=== PATIENT | female | born 1990 | race American Indian/Alaskan Native ===

== ENCOUNTER 2020-11-28 13:31 | Emergency (ER) | payer MEDICAID, OTHER ==
[2020-11-28 13:36] VITALS: BP 130/87
--- NOTE | 2020-11-28 13:38 | Emergency Department Report ---
- General Chief Complaint: Upper Respiratory Infection Stated Complaint: WEAKNESS HOT COLD, COUGH, HEADACHE Time Seen by Provider: 11/28/20 13:34 Source: patient Mode of arrival: Ambulatory Limitations: No Limitations - History of Present Illness Initial Comments: 30-year-old female presents to the ER today with complaints of flulike/Covid- like illness. Patient states her symptoms started 3 days ago. Patient states that she has been generally weak, having chills, headache, productive cough, and sneezing. 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 She has not gotten an outpatient Covid test since her symptoms started. She also has not received any of the COVID-19 vaccines. She reports no GI or symptoms. She reports no shortness of breath or wheezing. She does have a history of tobacco use but denies any illicit drug use or alcohol abuse. She denies any recent travel. She denies any significant past history. MD Complaint: cough, other (sneezing, chills, generalized weakness ) -: days(s) (3) - Related Data Previous Rx's Medication Instructions Recorded Last Taken Type Ibuprofen [Motrin] 400 mg PO Q8H PRN #30 tablet 11/28/20 Unknown Rx Allergies Allergy/AdvReac Type Severity Reaction Status Date / Time No Known Allergies Allergy Unverified 11/28/20 13:34 ED Review of Systems ROS: Stated complaint: WEAKNESS HOT COLD, COUGH, HEADACHE Other details as noted in HPI Comment: All other systems reviewed and negative Constitutional: chills. denies: fever Eyes: denies: eye pain, eye discharge, vision change ENT: other (Sneezing). denies: ear pain, throat pain, dental pain, hearing loss, epistaxis, congestion Respiratory: denies: cough, orthopnea, shortness of breath, SOB with exertion, SOB at rest, stridor, wheezing Cardiovascular: denies: chest pain, palpitations Gastrointestinal: denies: abdominal pain, nausea, vomiting, diarrhea, hematemesis, melena, hematochezia Genitourinary: denies: urgency, dysuria, frequency, hematuria, discharge, abnormal menses, dyspareunia Musculoskeletal: denies: back pain, joint swelling, arthralgia, myalgia Skin: denies: rash, lesions, change in color, change in hair/nails, pruritus Neurological: headache. denies: weakness, numbness, paresthesias, confusion, abnormal gait, vertigo Psychiatric: denies: anxiety, depression, auditory hallucinations, visual hallucinations, homicidal thoughts, suicidal thoughts Hematological/Lymphatic: denies: easy bleeding, easy bruising ED Past Medical Hx - Past Medical History Previous Medical History?: No - Surgical History Past Surgical History?: No - Medications Home Medications: Home Medications Medication Instructions Recorded Confirmed Last Taken Type Ibuprofen [Motrin] 400 mg PO Q8H PRN #30 tablet 11/28/20 Unknown Rx ED Physical Exam - General Limitations: No Limitations General appearance: alert, in no apparent distress - Head Head exam: Present: atraumatic, normocephalic, normal inspection - Eye Eye exam: Present: normal appearance, PERRL, EOMI Pupils: Present: normal accommodation - ENT ENT exam: Present: normal exam, mucous membranes moist, TM's normal bilaterally - Neck Neck exam: Present: normal inspection, full ROM. Absent: meningismus - Respiratory Respiratory exam: Present: normal lung sounds bilaterally. Absent: respiratory distress, wheezes, rales, rhonchi, stridor - Cardiovascular Cardiovascular Exam: Present: regular rate, normal rhythm, normal heart sounds - GI/Abdominal GI/Abdominal exam: Present: soft. Absent: distended, tenderness, guarding, rebound - Neurological Exam Neurological exam: Present: alert, oriented X3, CN II-XII intact, normal gait - Psychiatric Psychiatric exam: Present: normal affect, normal mood - Skin Skin exam: Present: intact ED Course Vital Signs 11/28/20 13:35 Temperature 98.6 F Pulse Rate 73 Respiratory 19 Rate Blood Pressure 130/87 O2 Sat by Pulse 99 Oximetry ED Medical Decision Making - Medical Decision Making The patient is resting comfortably, is alert and in no distress. The patient has normal mental status and is neurologically intact. The patient appears well and there is no significant dehydration. There is no respiratory distress and no signs of systemic toxicity. Her exam, diagnostic testing and current condit ion do not demonstrate an infectious process such as meningitis, severe pneumonia, retropharyngeal abscess, epiglottitis, sepsis or other serious /viral/bacterial infection requiring further testing, treatment, consultation or admission at this time. Patient likely has a nonspecific viral infection, but COVID-19 is to be considered and I discussed suspected diagnosis with patient and recommend that she get an outpatient COVID-19 test. In the meantime recommend that she quarantine, and recommend that she use [id number] medications to help treat her symptoms. The vital signs have been stable. She expressed understanding of all instructions and agree with plan. The patient's condition is stable and appropriate for discharge. The patient will pursue further outpatient evaluation with the primary care physician. Critical care attestation.: If time is entered above; I have spent that time in minutes in the direct care of this critically ill patient, excluding procedure time. ED Disposition Clinical Impression: Viral illness Disposition: 01 HOME / SELF CARE / HOMELESS Is pt being admited?: No Does the pt Need Aspirin: No Condition: Stable Instructions: Viral Illness, Adult Additional Instructions: If symptoms appear most consistent with a nonspecific viral syndrome. However given the current pandemic, COVID-19 is in the differential of possibilities. I do recommend getting an outpatient COVID-19 test at a local urgent care, clinic or pharmacy. In the meantime I recommend that you isolate/quarantine yourself and stay away from anyone who is elderly, immunocompromised or chronically ill. You can use ibuprofen every 6-8 hours and Tylenol every 4-6 hours as needed for any body aches, or pain or fever. You can also take flof-mgi-trrmfpu Mucinex, Robitussin or Delsym to help with any cough. I also recommend Claritin and or Zyrtec or Dorina to help with your sneezing. Drink lots of fluids. Take a multivitamin containing vitamin C, zinc and vitamin D to help boost your immune system. Follow-up closely with your PCP. Return to the ER if your symptoms changes or worsens in any way. Prescriptions: Ibuprofen [Motrin] 400 mg PO Q8H PRN #30 tablet PRN Reason: pain Referrals: [facility] [Provider Group] - 3-5 Days Forms: Work/School Release Form(ED) Time of Disposition: 13:54 Print Language: TAJIK
== END 2020-11-28 14:00 | disposition home or self-care (01) ==
LOC: ED 13:31
DX: B34.9 Viral infection, unspecified (principal)
CPT/HCPCS: 99282

== ENCOUNTER 2021-04-02 05:49 | Emergency (ER) | payer SELFPAY ==
[2021-04-02 06:55] VITALS: BP 122/83
[2021-04-02] MEDS ORDERED: SODIUM CHLORIDE 0.9% 1000 ML 1,000 ML IV ONE (07:01)
[2021-04-02] MEDS ORDERED: ONDANSETRON 4 MG/2 ML INJ IV ONE (07:01)
[2021-04-02 07:34] LABS: Hematocrit 44.4 % (30.3-42.9); Hemoglobin 14.7 gm/dl (10.1-14.3); Mean Corpuscular HGB Conc 33 % (30-34); Mean Corpuscular Volume 88 fl (79-97); Platelet Count 304 K/mm3 (140-440); Red Blood Count 5.03 M/mm3 (3.65-5.03); Red Cell Distribution Width 12.5 % (13.2-15.2)
--- NOTE | 2021-04-02 07:37 | Emergency Department Report ---
ED N/V/D HPI - General Chief complaint: Nausea/Vomiting/Diarrhea Stated complaint: HYPEREMESIS Time Seen by Provider: 04/02/21 07:31 Source: patient Mode of arrival: Ambulatory Limitations: No Limitations - History of Present Illness Initial comments: 30-year-old -Thai female presents to the emergency room complaining of nausea and vomiting for the last week and a half. Patient states she found out she was last week and since then has been nauseated and vomiting. She reports she has not been seen by [facility] OF NURSING as they will not see her until she is 8 weeks . She plans on being at [facility] with Dr. Joyce in [place]. Patient's last menstrual period was 02/17/2021. She is 3 para 2 with no complications in her last except hyperemesis in 1. She denies any vaginal bleeding denies any vaginal discharge mild pelvic pain on both sides. She is not vaccinated for Covid. She does not have a primary care provider. She has no past medical history, currently takes no meds on a daily basis and has no known drug allergies. MD complaint: nausea, vomiting, abdominal pain Onset/Timin -: week(s) Description of Vomiting: food contents, watery, bilious Associated Abdominal Pain: Yes (Bilateral pelvic pain) Severity: severe Pain Scale: 1 Quality: cramping Consistency: intermittent Improves with: none Worsens with: none Associated Symptoms: malaise, nausea/vomiting. denies: chest pain, cough, diaphoresis, fever/chills, loss of appetite - Related Data Previous Rx's Medication Instructions Recorded Last Taken Type Ibuprofen [Motrin] 400 mg PO Q8H PRN #30 tablet 11/28/20 Unknown Rx Ondansetron [Zofran Odt] 4 mg PO Q8HR PRN #12 tab.rapdis 04/02/21 Unknown Rx Allergies Allergy/AdvReac Type Severity Reaction Status Date / Time No Known Allergies Allergy Unverified 11/28/20 13:34 ED Review of Systems ROS: Stated complaint: HYPEREMESIS Other details as noted in HPI ED Past Medical Hx - Past Medical History Previous Medical History?: No - Medications Home Medications: Home Medications Medication Instructions Recorded Confirmed Last Taken Type Ibuprofen [Motrin] 400 mg PO Q8H PRN #30 tablet 11/28/20 Unknown Rx Ondansetron [Zofran Odt] 4 mg PO Q8HR PRN #12 tab.rapdis 04/02/21 Unknown Rx ED Physical Exam - General Limitations: No Limitations General appearance: alert, in no apparent distress - Head Head exam: Present: atraumatic, normocephalic - Eye Eye exam: Present: normal appearance - ENT ENT exam: Present: mucous membranes moist - Neck Neck exam: Present: normal inspection - Respiratory Respiratory exam: Present: normal lung sounds bilaterally. Absent: respiratory distress - Cardiovascular Cardiovascular Exam: Present: regular rate, normal rhythm. Absent: systolic murmur, diastolic murmur, rubs, gallop - GI/Abdominal GI/Abdominal exam: Present: soft, normal bowel sounds - Extremities Exam Extremities exam: Present: normal inspection - Back Exam Back exam: Present: normal inspection - Neurological Exam Neurological exam: Present: alert, oriented X3 - Psychiatric Psychiatric exam: Present: normal affect, normal mood - Skin Skin exam: Present: warm, dry, intact, normal color. Absent: rash ED Course Vital Signs 04/02/21 06:54 Temperature 98.9 F Pulse Rate 106 H Respiratory 20 Rate Blood Pressure 122/83 [Right] O2 Sat by Pulse 98 Oximetry - Reevaluation(s) Reevaluation #1: 04/02/21 10:13 Patient reports she feels much better after having fluids and is Zofran. She states she is feeling like she is getting hungry. I asked patient to please give us some urine. She says she will try. ED Medical Decision Making - Lab Data Result diagrams: 04/02/21 07:18 04/02/21 07:18 - Radiology Data Radiology results: report reviewed Study Comments [facility] [address] [place] [address] Ultrasound Report Signed Patient: PEYTON FENG MR#: [id number] 0 : 1990 Acct:[id number] Age/Sex: 30 / F ADM Date: 04/02/21 Loc: ED Attending Dr: Ordering Physician: THAO NUÑEZ Date of Service: 04/02/21 Procedure(s): US OB <= 14 weeks fetus Accession Number(s): [id number] cc: THAO NUÑEZ FIRSTTRIMESTER OBSTETRIC ULTRASOUND HISTORY: Pelvic pain, nausea and vomiting during . COMPARISON: None. TECHNIQUE: Routine transabdominal OB ultrasound performed. FINDINGS: Uterus: Mildly enlarged measuring 9.7 x 6.3 x 7.9 cm. Gestational Sac: Well-defined oval shape and intrauterine in location. Yolk Sac: Normal in appearance. Fetus/Embryo: Lavinia-rump length of 0.79 cm, corresponding to an estimated gestational age of 6 weeks 5 days. Embryonic/ anatomy is too small for evaluation. Embryonic/ cardiac activity: 124bpm Placenta: Too small for evaluation. Amniotic fluid volume: Subjectively appropriate for gestational age. Ovaries: The right ovary is normal in size and appearance with normal blood flow, measuring 2.5 x 1.9 x 1.7 cm. The left ovary is normal in size and appearance with normal blood flow, measuring 3.6 x 3.0 x 2.2 cm. Hypoechoic space-occupying mass in the left ovary with peripheral vascularity is most likely the corpus luteum. Additional findings: A small subchorionic hemorrhage is identified measuring 1.3 x 1.0 cm IMPRESSION Viable single intrauterine dated at 6 weeks 5 days. Small subchorionic hemorrhage. Probable corpus luteum cyst in the left ovary. Signer Name: Adolph Aguilar Jr, MD Signed: 04/02/2021 8:30 AM Workstation Name: [id number] Transcribed By: TTR Dictated By: ADOLPH AGUILAR JR, MD Electronically Authenticated By: ADOLPH AGUILAR JR, MD Signed Date/Time: 04/02/21829 DD/ 6 TD/TT: - Medical Decision Making 30-year-old -Thai female presents to the emergency room complaining of nausea and vomiting for the last week and a half. Patient states she found out she was last week and since then has been nauseated and vomiting. She reports she has not been seen by [facility] OF NURSING as they will not see her until she is 8 weeks . She plans on being at [facility] with Dr. Joyce in [place]. Patient's last menstrual period was 02/17/2021. She is 3 para 2 with no complications in her last except hyperemesis in 1. She denies any vaginal bleeding denies any vaginal discharge mild pelvic pain on both sides. She is not vaccinated for Covid. She does not have a primary care provider. She has no past medical history, currently takes no meds on a daily basis and has no known drug allergies. CBC, CMP, hCG, urinalysis, INT normal saline, IV Zofran. Critical care attestation.: If time is entered above; I have spent that time in minutes in the direct care of this critically ill patient, excluding procedure time. ED Disposition Clinical Impression: Hyperemesis gravidarum Disposition: HOME / SELF CARE / HOMELESS Is pt being admited?: No Does the pt Need Aspirin: No Condition: Stable Instructions: Hyperemesis Gravidarum Additional Instructions: Urinalysis is negative. Your ultrasound shows you are having intrauterine uterine gestation of 6 weeks and 5 days. I recommend to take the Zofran for nausea and vomiting. Keep your appointment with your PROFESSOR OF NURSING. Increase your fluids advance your diet as tolerated. Start on your vitamins. You can only take Tylenol for your pain. Prescriptions: Ondansetron [Zofran Odt] 4 mg PO Q8HR PRN #12 tab.rapdis PRN Reason: Nausea And Vomiting Referrals: PRIMARY CARE, [Primary Care Provider] - 3-5 Days [facility] [Provider Group] - 3-5 Days Forms: Accompanied Note, Work/School Release Form(ED) Time of Disposition: 11:43
[2021-04-02 07:58] LABS: Alanine Aminotransferase 16 units/L (7-56); Blood Urea Nitrogen 14 mg/dL (7-17); Calcium 9.7 mg/dL (8.4-10.2); Hemolysis Index 9
[2021-04-02 08:00] LABS: BUN/Creatinine Ratio 23
--- NOTE | 2021-04-02 08:34 | Ultrasound Report ---
FIRSTTRIMESTER OBSTETRIC ULTRASOUND HISTORY: Pelvic pain, nausea and vomiting during . COMPARISON: None. TECHNIQUE: Routine transabdominal OB ultrasound performed. FINDINGS: Uterus: Mildly enlarged measuring 9.7 x 6.3 x 7.9 cm. Gestational Sac: Well-defined oval shape and intrauterine in location. Yolk Sac: Normal in appearance. Fetus/Embryo: [place]-rump length of 0.79 cm, corresponding to an estimated gestational age of 6 weeks 5 days. Embryonic/ anatomy is too small for evaluation. Embryonic/ cardiac activity: 124bpm Placenta: Too small for evaluation. Amniotic fluid volume: Subjectively appropriate for gestational age. Ovaries: The right ovary is normal in size and appearance with normal blood flow, measuring 2.5 x 1. 9 x 1.7 cm. The left ovary is normal in size and appearance with normal blood flow, measuring 3.6 x 3.0 x 2.2 cm. Hypoechoic space-occupying mass in the left ovary with peripheral vascularity is most likely the corpus luteum. Additional findings: A small subchorionic hemorrhage is identified measuring 1.3 x 1.0 cm IMPRESSION Viable single intrauterine dated at 6 weeks 5 days. Small subchorionic hemorrhage. Probable corpus luteum cyst in the left ovary. Signer Name: Adolph Aguilar Jr, MD Signed: 04/02/2021 8:30 AM Workstation Name: [id number]
[2021-04-02 11:14] LABS: Bilirubin,Urine NEG (Negative); Blood,Urine NEG (Negative); Color,Urine Amber (Yellow); RBC,Urine < 1.0 /HPF (0.0-6.0); WBC,Urine < 1.0 /HPF (0.0-6.0)
== END 2021-04-02 11:49 | disposition home or self-care (01) ==
LOC: ED 05:49
DX: O21.0 Mild hyperemesis gravidarum (principal); O26.891 Other specified pregnancy related conditions, first trimester; R53.81 Other malaise; R10.2 Pelvic and perineal pain; Z3A.01 Less than 8 weeks gestation of pregnancy
CPT/HCPCS: 36415; 76801; 80053; 81001; 84702; 85027; 96361; 96374; 99284; J2405; J7030; Q0162

== ENCOUNTER 2021-04-06 15:25 | Emergency (ER) | payer SELFPAY ==
[2021-04-06] MEDS ORDERED: SODIUM CHLORIDE 0.9% 1000 ML 1,000 ML IV ONE (16:33)
[2021-04-06] MEDS ORDERED: diphenhydrAMINE 50 MG/ML VIAL IV ONE (16:33)
[2021-04-06] MEDS ORDERED: METOCLOPRAMIDE 10 MG/2 ML INJ IV ONE (16:33)
--- NOTE | 2021-04-06 16:54 | Emergency Department Report ---
ED General Adult HPI - General Chief complaint: Nausea/Vomiting/Diarrhea Stated complaint: 7 WEEKS , VOMITING BLOOD Time Seen by Provider: 04/06/21 16:33 Source: patient Mode of arrival: Ambulatory Limitations: No Limitations - History of Present Illness Initial comments: Patient is a 30-year-old female presents emergency room with complaints of nausea and vomiting for approximately 4 days. Patient was recently evaluated in the emergency department for the same symptoms and was prescribed Zofran but she states that is not helping. Patient did have an ultrasound performed which confirmed an IUP. She states that she has some abdominal cramping but no significant abdominal pain. She states that she is having difficulty tolerating p.o. intake. She states that she gets a burning sensation after vomiting. She states that she has been seeing bile and has had a few episodes where her vomit was darker but she denies any mickey blood. She denies any fever, diarrhea, urinary symptoms, vaginal bleeding. She denies any past medical history. She denies any medication allergies. /P: 2/A: 0. - Related Data Previous Rx's Medication Instructions Recorded Last Taken Type Ibuprofen [Motrin] 400 mg PO Q8H PRN #30 tablet 11/28/20 Unknown Rx Ondansetron [Zofran Odt] 4 mg PO Q8HR PRN #12 tab.rapdis 04/02/21 Unknown Rx Metoclopramide [Reglan] 10 mg PO Q8HR PRN #14 tab 04/06/21 Unknown Rx Promethazine HCl [Phenergan SUPPOS] 25 mg RC Q8HR PRN #8 04/06/21 Unknown Rx Allergies Allergy/AdvReac Type Severity Reaction Status Date / Time No Known Allergies Allergy Unverified 11/28/20 13:34 ED Review of Systems ROS: Stated complaint: 7 WEEKS , VOMITING BLOOD Other details as noted in HPI Comment: All other systems reviewed and negative ED Past Medical Hx - Medications Home Medications: Home Medications Medication Instructions Recorded Confirmed Last Taken Type Ibuprofen [Motrin] 400 mg PO Q8H PRN #30 tablet 11/28/20 Unknown Rx Ondansetron [Zofran Odt] 4 mg PO Q8HR PRN #12 tab.rapdis 04/02/21 Unknown Rx Metoclopramide [Reglan] 10 mg PO Q8HR PRN #14 tab 04/06/21 Unknown Rx Promethazine HCl [Phenergan SUPPOS] 25 mg RC Q8HR PRN #8 04/06/21 Unknown Rx ED Physical Exam - General Limitations: No Limitations General appearance: alert, in no apparent distress - Head Head exam: Present: atraumatic, normocephalic - Eye Eye exam: Present: normal appearance - ENT ENT exam: Present: mucous membranes moist - Respiratory Respiratory exam: Present: normal lung sounds bilaterally. Absent: respiratory distress, wheezes, rales, rhonchi, stridor, chest wall tenderness, accessory muscle use, decreased breath sounds, prolonged expiratory - Cardiovascular Cardiovascular Exam: Present: regular rate, normal rhythm, normal heart sounds. Absent: systolic murmur, diastolic murmur, rubs, gallop - GI/Abdominal GI/Abdominal exam: Present: soft, normal bowel sounds. Absent: distended, tenderness, guarding, rebound, rigid - Neurological Exam Neurological exam: Present: alert, oriented X3 - Psychiatric Psychiatric exam: Present: normal affect, normal mood - Skin Skin exam: Present: warm, dry, intact ED Course Vital Signs 04/06/21 04/06/21 17:00 17:43 Temperature 98.3 F 98.4 F Pulse Rate 72 100 H Respiratory 20 14 Rate Blood Pressure 122/66 Blood Pressure 113/75 [Right] O2 Sat by Pulse 97 100 Oximetry ED Medical Decision Making - Lab Data Result diagrams: 04/06/21 16:33 04/06/21 16:33 - Medical Decision Making Patient is a 30-year-old female presents emergency room with complaints of nausea and vomiting for approximately 4 days. Patient was recently evaluated in the emergency department for the same symptoms and was prescribed Zofran but she states that is not helping. Patient did have an ultrasound performed which confirmed an IUP. She states that she has some abdominal cramping but no significant abdominal pain. She states that she is having difficulty tolerating p.o. intake. She states that she gets a burning sensation after vomiting. She states that she has been seeing bile and has had a few episodes where her vomit was darker but she denies any mickey blood. She denies any fever, diarrhea, urinary symptoms, vaginal bleeding. She denies any past medical history. She denies any medication allergies. /P: 2/A: 0. Vitals are normal. No abdominal tenderness on exam. Labs and UA show some dehydration, patient given IV fluids, otherwise labs are stable. hCG quant has appropriately increased. She is not having any bleeding or pain. She has already had a confirmed IUP. Patient given medications while in the emergency department with improvement of her symptoms. She had no further episodes of vomiting. Her H&H is normal. She was able to tolerate p.o. intake without any difficulty. Advised patient Please use medication as prescribed. Please only use Phenergan suppositories if oral Reglan is not helping. Please do not take Reglan and Phenergan together. Increase fluid intake over the next several days. Follow-up with [facility]. If you do not have a [facility], one has been listed below. continue taking a vitamin [id number]. Return to emergency room for any new or worsening symptoms. Critical care attestation.: If time is entered above; I have spent that time in minutes in the direct care of this critically ill patient, excluding procedure time. ED Disposition Clinical Impression: Nausea/vomiting in , Dehydration Disposition: 01 HOME / SELF CARE / HOMELESS Is pt being admited?: No Does the pt Need Aspirin: No Condition: Stable Instructions: Hyperemesis Gravidarum Additional Instructions: Please use medication as prescribed. Please only use Phenergan suppositories if oral Reglan is not helping. Please do not take Reglan and Phenergan together. Increase fluid intake over the next several days. Follow-up with [facility]. If you do not have a [facility] [employer] [facility], one has been listed below. continue taking a vitamin [id number]. Return to emergency room for any new or worsening symptoms. 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 [Provider Group] - 2-3 Days Time of Disposition: 18:26 Print Language: [place] LEONEAN
[2021-04-06 17:39] LABS: Basophils % (Auto) 0.2 % (0.0-1.8); Hematocrit 40.6 % (30.3-42.9); Hemoglobin 13.5 gm/dl (10.1-14.3); Lymphocytes # (Auto) 1.1 K/mm3 (1.2-5.4); Lymphocytes % (Auto) 12.9 % (13.4-35.0); Mean Corpuscular HGB Conc 33 % (30-34); Mean Corpuscular Volume 89 fl (79-97); Monocytes # (Auto) 0.4 K/mm3 (0.0-0.8); Monocytes % (Auto) 4.7 % (0.0-7.3); Platelet Count 251 K/mm3 (140-440); Red Blood Count 4.58 M/mm3 (3.65-5.03); Red Cell Distribution Width 12.4 % (13.2-15.2)
[2021-04-06 17:45] VITALS: BP 122/66
[2021-04-06 17:55] LABS: Alanine Aminotransferase 10 units/L (7-56); Albumin 4.6 g/dL (3.9-5); Blood Urea Nitrogen 15 mg/dL (7-17); Calcium 9.8 mg/dL (8.4-10.2); Hemolysis Index 10
[2021-04-06 17:56] LABS: BUN/Creatinine Ratio 25
[2021-04-06 18:08] LABS: Bilirubin,Urine NEG (Negative); Blood,Urine NEG (Negative); Color,Urine Amber (Yellow); Mucus,Urine 3+ /HPF
== END 2021-04-06 18:41 | disposition home or self-care (01) ==
LOC: ED 15:25
DX: O21.9 Vomiting of pregnancy, unspecified (principal); O26.891 Other specified pregnancy related conditions, first trimester; E86.0 Dehydration; Z79.899 Other long term (current) drug therapy; Z3A.01 Less than 8 weeks gestation of pregnancy
CPT/HCPCS: 36415; 80053; 81001; 83690; 84702; 85025; 96361; 96374; 96375; 99283; J1200; J2765; J7030; Q0162

== ENCOUNTER 2021-04-11 13:17 | Emergency (ER) | payer SELFPAY ==
[2021-04-11 13:56] VITALS: BP 120/86
[2021-04-11] MEDS ORDERED: ONDANSETRON 4 MG/2 ML INJ IV ONE (14:15)
[2021-04-11] MEDS ORDERED: METOCLOPRAMIDE 10 MG/2 ML INJ IV ONE (14:15)
--- NOTE | 2021-04-11 14:19 | Emergency Department Report ---
ED N/V/D HPI - General Chief complaint: Nausea/Vomiting/Diarrhea Stated complaint: VOMITTING Time Seen by Provider: 04/11/21 14:05 Source: patient, old records reviewed Mode of arrival: Wheelchair Limitations: No Limitations - History of Present Illness Initial comments: 30-year-old female presents to the ER today with complaints of nausea and vomiting. Patient states that she is currently about 7 weeks . Patient states that she has been having nausea or vomiting since she has been . She was seen here on April 02 as well as April 06 for similar symptoms. At her last visit she was discharged home with prescription for Phenergan suppositories and Reglan in the visit before that she was given Zofran. She states now the medications have been helping her nausea vomiting. She states that she has still continued to have significant nausea and vomiting and is unable to keep anything down. She states that her emesis is anything that she tries to eat or drink. She denies any coffee-ground emesis or hematemesis. She reports upper abdominal discomfort mainly secondary to the vomiting and also substernal chest burning. She states that she has not been able to establish with INFORMATION MANAGEMENT [employer]ER as yet because she still waiting on her insurance to activate. She is G3, P2 Ab 0. She states that she did have hyperemesis gravidarum with her first which was 9 years ago. She reports no fever, chills, shortness of breath, cough, lower extremity swelling, calf pain or any additional symptoms at this time. MD complaint: nausea, vomiting, other (7 WEEKS PREG) - Related Data Previous Rx's Medication Instructions Recorded Last Taken Type Ibuprofen [Motrin] 400 mg PO Q8H PRN #30 tablet 11/28/20 Unknown Rx Ondansetron [Zofran Odt] 4 mg PO Q8HR PRN #12 tab.rapdis 04/02/21 Unknown Rx Metoclopramide [Reglan] 10 mg PO Q8HR PRN #14 tab 04/06/21 Unknown Rx Promethazine HCl [Phenergan SUPPOS] 25 mg RC Q8HR PRN #8 04/06/21 Unknown Rx Allergies Allergy/AdvReac Type Severity Reaction Status Date / Time No Known Allergies Allergy Unverified 11/28/20 13:34 ED Review of Systems ROS: Stated complaint: VOMITTING Other details as noted in HPI Comment: All other systems reviewed and negative Constitutional: denies: chills, fever Eyes: denies: eye pain, eye discharge, vision change ENT: denies: ear pain, throat pain, dental pain, hearing loss, epistaxis, congestion Respiratory: denies: cough, shortness of breath, SOB with exertion, SOB at rest, stridor, wheezing Cardiovascular: chest pain (Chest burning) Gastrointestinal: abdominal pain, nausea, vomiting. denies: diarrhea, constipation, hematemesis, melena, hematochezia Genitourinary: denies: urgency, dysuria, frequency, hematuria, discharge, abnormal menses, dyspareunia Musculoskeletal: denies: back pain, joint swelling, arthralgia, myalgia Skin: denies: rash, lesions, change in color, change in hair/nails, pruritus Neurological: denies: headache, weakness, numbness, paresthesias, confusion, abnormal gait, vertigo Psychiatric: denies: anxiety, depression, auditory hallucinations, visual hallucinations, homicidal thoughts Hematological/Lymphatic: denies: easy bleeding, easy bruising, swollen glands ED Past Medical Hx - Medications Home Medications: Home Medications Medication Instructions Recorded Confirmed Last Taken Type Ibuprofen [Motrin] 400 mg PO Q8H PRN #30 tablet 11/28/20 Unknown Rx Ondansetron [Zofran Odt] 4 mg PO Q8HR PRN #12 tab.rapdis 04/02/21 Unknown Rx Metoclopramide [Reglan] 10 mg PO Q8HR PRN #14 tab 04/06/21 Unknown Rx Promethazine HCl [Phenergan SUPPOS] 25 mg RC Q8HR PRN #8 04/06/21 Unknown Rx ED Physical Exam - General Limitations: No Limitations General appearance: alert, cachectic, other (Patient appears uncomfortable and actively vomiting in triage) - Head Head exam: Present: atraumatic, normocephalic, normal inspection - Eye Eye exam: Present: normal appearance, PERRL Pupils: Present: normal accommodation - ENT ENT exam: Present: mucous membranes moist - Neck Neck exam: Present: normal inspection, full ROM. Absent: meningismus - Respiratory Respiratory exam: Present: normal lung sounds bilaterally. Absent: respiratory distress, wheezes, rales, rhonchi - Cardiovascular Cardiovascular Exam: Present: normal rhythm, tachycardia, normal heart sounds - GI/Abdominal GI/Abdominal exam: Present: soft, tenderness (diffuse upper ttp upper abd). Absent: rebound, rigid - Neurological Exam Neurological exam: Present: alert, oriented X3, CN II-XII intact, normal gait - Psychiatric Psychiatric exam: Present: normal affect, normal mood - Skin Skin exam: Present: intact ED Course Vital Signs 04/11/21 13:55 Temperature 98.1 F Pulse Rate 104 H Respiratory 20 Rate Blood Pressure 120/86 O2 Sat by Pulse 97 Oximetry ED Medical Decision Making - Lab Data Result diagrams: 04/11/21 14:32 04/11/21 14:32 04/02/2021 OB US showed 6weeks 5 day IUP and small subchorionic hemorrhage. - Medical Decision Making 1527: Triage nurse Morena informed me that patient is upset and is wanting to go come without completing her ER treatment and evaluation. She is currently getting IV fluids but labs/US still pending. Apparently when US came to get patient, the wheel chair was given to another patient and she was not pleased about it. I went to talk with patient to find out what's going on. She kept say "I just want to go home to get in my bed, there is too much going on around here" then she mentioned the issue about the chair and I informed her than we can always get her another wheelchair to take her to US but she refused, started to get loud stating "I just want to go to my bed, I do not see why you guys will not let me go to my bed". Then I informed her that we are just trying to help, she then nodded her head and stated " I know but I just want to go home to get in my bed". Informed patient that she will need to sign out AMA which she agreed to. [Scarlet Cisneros ] Has decided to leave our facility AGAINST MEDICAL ADVICE. I have assessed the patient's ability to make informed decision and it is my opinion at this time that the patient has the medical decision capacity to comprehend information regarding current medical condition and appreciates the impact of the disease or condition and the consequences of various options for treatment including foregoing treatment. The patient possesses the ability to evaluate all treatment options, compared to risk and benefits of each option, communicate choice in a consistent manner over time and is able to make rational choices. I have explained to the patient further testing, treatment and evaluation I would like to perform during the current emergency department visit as well as any possible alternatives that could be accomplished in a timely manner. I have outlined the possible risk of foregoing any or all of these interventions and the patient understands and acknowledges that the decision to leave may result in undesirable consequences such as , permanent disability and/or loss of current lifestyle. Even though leaving AMA is not ideal, I have instructed the patient to follow any discharge instructions given take any medications prescribed and resume care as soon as possible with another provider. Additionally, we clearly stated that the patient is welcome to return at any time to continue at our facility. Critical care attestation.: If time is entered above; I have spent that time in minutes in the direct care of this critically ill patient, excluding procedure time. ED Disposition Clinical Impression: Hyperemesis gravidarum Disposition: 07 LEFT AGAINST MEDICAL ADVICE Is pt being admited?: No Does the pt Need Aspirin: No Condition: Stable Referrals: PRIMARY CARE, [Primary Care Provider] - 3-5 Days Forms: AMA Form
[2021-04-11] MEDS ORDERED: D5W/0.9% NACL 1,000 ML IV SCH (15:00)
[2021-04-11 15:13] LABS: Basophils # (Auto) 0.1 K/mm3 (0.0-0.1); Basophils % (Auto) 0.6 % (0.0-1.8); Eosinophils % (Auto) 0.1 % (0.0-4.3); Hematocrit 42.5 % (30.3-42.9); Hemoglobin 14.4 gm/dl (10.1-14.3); Lymphocytes # (Auto) 1.5 K/mm3 (1.2-5.4); Lymphocytes % (Auto) 12.4 % (13.4-35.0); Mean Corpuscular HGB Conc 34 % (30-34); Mean Corpuscular Volume 87 fl (79-97); Monocytes # (Auto) 0.7 K/mm3 (0.0-0.8); Monocytes % (Auto) 5.9 % (0.0-7.3); Platelet Count 294 K/mm3 (140-440)
[2021-04-11 15:25] LABS: Alanine Aminotransferase 31 units/L (7-56); Albumin 4.9 g/dL (3.9-5); Blood Urea Nitrogen 24 mg/dL (7-17); Hemolysis Index 8
[2021-04-11 15:50] LABS: BUN/Creatinine Ratio 34
== END 2021-04-11 15:33 | disposition left against medical advice (07) ==
LOC: ED 13:17
DX: O21.0 Mild hyperemesis gravidarum (principal); Z3A.00 Weeks of gestation of pregnancy not specified
CPT/HCPCS: 36415; 80053; 83690; 84702; 85025; 96374; 96375; 99283; J2405; J2765; J7042; J3490